=== PATIENT | female | born 1940 | race Caucasian/White ===

== ENCOUNTER 2018-03-06 11:59 | Emergency (ER) | payer OTHER ==
[~2018-03-06] VITALS: Ht 165.1 cm; Wt 77.1 kg
[2018-03-06] MEDS ORDERED: LORazepam 0.5 MG TAB PO ONE (12:45)
[2018-03-06] MEDS ORDERED: cloNIDine HCL 0.1 MG TAB PO ONE (13:00)
[2018-03-06 13:59] VITALS: BP 150/72
== END 2018-03-06 14:06 | disposition home or self-care (01) ==
LOC: ER 11:59
DX: S16.1XXA Strain of muscle, fascia and tendon at neck level, initial encounter (principal); R51 Headache; V43.52XA Car driver injured in collision with other type car in traffic accident, initial encounter; Y93.I9 Activity, other involving external motion; Y92.488 Other paved roadways as the place of occurrence of the external cause; Y99.8 Other external cause status
CPT/HCPCS: 70450; 72125; 93005